=== PATIENT | male | born 1960 | race African-American/Black ===

== ENCOUNTER 2022-08-14 14:12 | Emergency (ER) | payer MEDICARE, SELFPAY ==
--- NOTE | 2022-08-14 14:19 | ED.MALEGU ---
HPI - Male Genitourinary General Chief complaint: Urogenital-Male Stated complaint: blood in urine; frequent urine Time Seen by Provider: 08/14/22 14:39 Source: patient and RN notes reviewed Mode of arrival: ambulatory Limitations: no limitations History of Present Illness HPI Narrative: 61-year-old male presents with concern for urine frequency, change in urine stream, blood in his urine. He reports history of urinary stricture and gets urinary tract infections about once a year. He denies fever, aches. Reports chills. Reports abdominal discomfort, denies abdominal pain, vomiting. Reports mild low back pain. He did not take any medications for his symptoms MD Complaint: other (Urinary urgency) Related Data Home Medications Medication Instructions Recorded Confirmed chlorthalidone 25 mg tablet 25 mg PO DAILY 08/14/22 08/14/22 clonidine HCl 0.2 mg tablet 0.2 mg PO BID 08/14/22 08/14/22 losartan 25 mg tablet 25 mg PO DAILY 08/14/22 08/14/22 Allergies Allergy/AdvReac Type Severity Reaction Status Date / Time sulfamethoxazole Allergy Severe Swelling Verified 08/14/22 14:44 [From Bactrim] trimethoprim [From Bactrim] Allergy Severe Swelling Verified 08/14/22 14:44 Review of Systems Review of Systems: CONSTITUTIONAL: Denies malaise, chills, sweats, or fever. CARDIOVASCULAR: Denies chest pain, palpitations, or edema. RESPIRATORY: Denies cough or dyspnea. GASTROINTESTINAL: Denies abdominal pain, nausea, vomiting, diarrhea GENITOURINARY: Reports urgency, frequency, hematuria. Denies dysuria, suprapubic pressure, flank pain SKIN: Denies rash or itching. MUSCULOSKELETAL: Denies back pain or myalgia. All systems reviewed & are unremarkable except as noted in HPI and below PMFSH Comments At time of signature, agree with nursing past medical, surgical, social and family history. There is no relevant family history pertinent to the presenting complaint Exam Narrative: GENERAL: Well-appearing, well-nourished, and in no acute distress. HEAD: Normocephalic. EYES: PERRLA, conjunctivae clear. NECK: Supple. No lymphadenopathy CHEST: Clear to auscultation. No respiratory distress. HEART: Regular rate and rhythm. ABDOMEN: Soft, nontender upon palpation, nondistended, normal active bowel sounds, no palpable or pulsatile masses, no guarding. No CVA tenderness SKIN: Warm, dry, no rash. NEURO: Alert and oriented x3. PSYCH: Normal mood and affect Course Course Emergency Course: Patient is aware of diagnosis, understands and agrees to treatment plan. Anticipatory guidance given. Patient agrees to follow-up as directed and is aware of reasons to seek care at the emergency department. Portions of this record may have been created with voice recognition software Level of Care: Express Care Visit Vital Signs Vital signs: Reviewed. MDM - Male Genitourinary MDM Narrative Medical decision making narrative: Exam findings show no acute concerns or changes; patient is non-toxic appearing and is in no distress. Patient is appropriate for outpatient treatment and follow-up. Critical Care Time Critical Care Time Critical Care Time: No Discharge Plan Discharge Clinical Impression: Urinary tract infection Qualifiers: Hematuria presence: with hematuria Patient Disposition: Home, Self-Care Condition: Stable Instructions: Antibiotic Form, Urinary Tract Infection in Men (ED) Additional Instructions: We will send a urine culture to the lab; if the culture identifies an organism that the prescribed antibiotic will not treat, you will receive a phone call from an urgent care staff member and an appropriate antibiotic will be prescribed. -Your symptoms should begin to improve within a day of starting antibiotics. But you should finish all the antibiotic pills you get. Otherwise your infection might come back. -Also recommend: increase water intake. Tylenol/ibuprofen as needed for pain or fever -Follow-up with you
[2022-08-14 14:33] VITALS: BP 155/96; PULSE 87; RESP 16; TEMP 37.7; O2SAT 99
== END 2022-08-14 14:54 | disposition home or self-care (01) ==
PROVIDERS: Emergency Provider Nurse Practitioner
DX: N39.0 Urinary tract infection, site not specified (principal); R31.9 Hematuria, unspecified; I10 Essential (primary) hypertension
CPT/HCPCS: 81003; 87077; 87086; 87186; 99213; G0463

== ENCOUNTER 2022-08-22 14:48 | Emergency (ER) | payer MEDICARE, SELFPAY ==
[2022-08-22 15:02] VITALS: BP 162/89; PULSE 73; RESP 12; TEMP 36.6; O2SAT 100
--- NOTE | 2022-08-22 15:18 | ED.MALEGU ---
HPI - Male Genitourinary General Chief complaint: Urogenital-Male Stated complaint: Blood in urine Time Seen by Provider: 08/22/22 15:05 Source: patient Mode of arrival: ambulatory Limitations: no limitations History of Present Illness HPI Narrative: Mr. Morrell is a 61-year-old male patient presenting to the clinic today with complaints of blood in his urine times 1-2 days. He reports he just finished up a prescription for some ciprofloxacin for a urinary tract infection. Was seen here and prescribed the Cipro. Urine culture came back as Citrobactor Kosar-ciprofloxacin was susceptible. Patient reports that he believes he only has taking the antibiotic for 4-5 days. He denies any fever, chills, flank pain, or abdominal pain. States that he is just having gross hematuria. 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 Feels as though he may not be fully emptying his bladder at times. No history of prostate enlargement. Related Data Home Medications Medication Instructions Recorded Confirmed chlorthalidone 25 mg tablet 25 mg PO DAILY 08/14/22 08/22/22 clonidine HCl 0.2 mg tablet 0.2 mg PO BID 08/14/22 08/22/22 losartan 25 mg tablet 25 mg PO DAILY 08/14/22 08/22/22 Allergies Allergy/AdvReac Type Severity Reaction Status Date / Time sulfamethoxazole Allergy Severe Swelling Verified 08/22/22 14:59 [From Bactrim] trimethoprim [From Bactrim] Allergy Severe Swelling Verified 08/22/22 14:59 Review of Systems Review of Systems: Pertinent positives per HPI. Patient denies any fever, chills, rash, headache, visual changes, dizziness, cough, runny nose, sore throat, shortness of breath, chest pain, palpitations, nausea, vomiting, diarrhea, constipation, abdominal pain, or any urinary issues. PMFSH Comments At the time of my signature, I reviewed and agree with the nursing past medical, surgical, social, and family history. There is no relevant family history pertinent to the patient complaint. Exam Narrative: General: Well-developed, well nourished, in no apparent distress. Head: Normocephalic, atraumatic. Cardio: Regular rate and rhythm, s1 and s2 normal, no murmur appreciated. Resp: Clear to auscultation bilaterally, no rhonchi, rales, wheezing or rubs. Abdomen: Soft, pliable, bowel sounds present in all quadrants, non-tender to palpation, no organomegly, no CVAT tenderness. Course Course Emergency Course: Portions of this record may have been created with voice recognition software. Level of Care: Express Care Visit Vital Signs Vital signs: Vital Signs Temperature 36.6 C 08/22/22 15:02 Pulse Rate 73 08/22/22 15:02 Respiratory Rate 12 08/22/22 15:02 Blood Pressure 162/89 H 08/22/22 15:02 Pulse Oximetry 100 08/22/22 15:02 Oxygen Delivery Room Air 08/22/22 15:02 Temperature 36.6 C 08/22/22 15:02 Pulse Rate 73 08/22/22 15:02 Respiratory Rate 12 08/22/22 15:02 Blood Pressure 162/89 H 08/22/22 15:02 Pulse Oximetry 100 08/22/22 15:02 Oxygen Delivery Room Air 08/22/22 15:02 Vital signs reviewed MDM - Male Genitourinary MDM Narrative Medical decision making narrative: At the time of visit patient is resting comfortably on the exam table. Urinalysis dip is skewed due to gross hematuria. Will send this for culture. I will place the patient on Augmentin and discuss taking this for 10 days since his last culture was positive. If his symptoms are persistent he is to go to the emergency room or his primary care provider to have further evaluation. Gross hematuria could likely be caused by urinary tract infection, bladder mass, or interstitial cystitis. Supportive measures were discussed with the patient he voiced understanding discharge instructions agrees to treatment plan Differential Diagnosis Differential diagnosis: Likely urinary tract infection and other (Acute cystitis, gross hematuria, bladder mass, kidney stone, pyelonephr
== END 2022-08-22 15:29 | disposition home or self-care (01) ==
PROVIDERS: Emergency Provider Nurse Practitioner Family
DX: N30.01 Acute cystitis with hematuria (principal); I10 Essential (primary) hypertension
CPT/HCPCS: 81003; 87086; 99213; G0463

== ENCOUNTER 2023-01-11 15:02 | Emergency (ER) | payer MEDICARE, SELFPAY ==
[2023-01-11 15:25] VITALS: BP 139/78; PULSE 63; RESP 16; TEMP 37.3; O2SAT 100
--- NOTE | 2023-01-11 15:25 | ED.URI ---
HPI - URI/Sore Throat General Chief Complaint: Upper Respiratory Infection Stated Complaint: UTI Time Seen by Provider: 01/11/23 15:05 Source: patient Mode of arrival: ambulatory Limitations: no limitations History of Present Illness HPI Narrative: Sathya is a 62-year-old male patient presenting to the clinic today with complaints of possible UTI. He reports he noticed blood in his urine 2 days ago. Has recently been taking cefuroxime for possible UTI. He reports he has taken approximately 3 doses of the medication. Called his PCP's office 5 days ago and they sent him in the prescription for the medication as his urine was cloudy at that time. History of urethral reconstruction due to stricture. No fever or chills. Denies any bladder pain but has some right low back pain Related Data Home Medications Medication Instructions Recorded Confirmed chlorthalidone 25 mg tablet 25 mg PO DAILY 08/14/22 01/11/23 clonidine HCl 0.2 mg tablet 0.2 mg PO BID 08/14/22 01/11/23 losartan 25 mg tablet 25 mg PO DAILY 08/14/22 01/11/23 cefuroxime axetil 500 mg tablet mg 01/11/23 Allergies Allergy/AdvReac Type Severity Reaction Status Date / Time sulfamethoxazole Allergy Severe Swelling Verified 01/11/23 15:06 [From Bactrim] trimethoprim [From Bactrim] Allergy Severe Swelling Verified 01/11/23 15:06 Review of Systems Review of Systems: Pertinent positives per HPI. Patient denies any fever, chills, rash, headache, visual changes, dizziness, cough, runny nose, sore throat, shortness of breath, chest pain, palpitations, nausea, vomiting, diarrhea, constipation, abdominal pain, or any urinary issues. PMFSH Comments At the time of my signature, I reviewed and agree with the nursing past medical, surgical, social, and family history. There is no relevant family history pertinent to the patient complaint. Exam Narrative: General: Well-developed, well nourished, in no apparent distress. Head: Normocephalic, atraumatic. Cardio: Regular rate and rhythm, s1 and s2 normal, no murmur appreciated. Resp: Clear to auscultation bilaterally, no rhonchi, rales, wheezing or rubs. Abdomen: Soft, pliable, bowel sounds present in all quadrants, non-tender to palpation, no organomegly, no CVAT tenderness. Course Course Emergency Course: Portions of this record may have been created with voice recognition software. Level of Care: Express Care Visit Vital Signs Vital signs: Vital signs reviewed MDM - URI/Sore Throat MDM Narrative Medical decision making narrative: At the time of visit patient is resting comfortably on the exam table. UA was obtained and is positive for leukocytes, protein, blood, and ketones. Will send for culture. I suspect patient has urinary tract infection with possible right pyelonephritis. He is nontoxic appearing. Rocephin 1 g IM given in the clinic today. Will place the patient on Augmentin. Return precautions were reviewed and he voiced understanding. Supportive measures were discussed with the patient he voiced understanding discharge instructions and agrees to treatment plan. Referral for urologist was given. Differential Diagnosis Differential diagnosis: Likely other (Acute cystitis, pyelonephritis, urinary tract infection) Discharge Plan Discharge Clinical Impression: Acute UTI Patient Disposition: Home, Self-Care Condition: Stable Instructions: Antibiotic Form, Urinary Tract Infection in Men (ED) Additional Instructions: Urinalysis is positive for 1+ leukocyte, 3+ protein, 3+ blood, trace of ketone, and positive bili. Will send urine for culture Rocephin 1 g IM given in the clinic today Take Augmentin as prescribed Increase fluids and stay well hydrated Wipe front to back. May use wet wipes. Avoid tub baths If sexually active- pee before and after intercourse. Wear cotton panties Avoid tight clothing up against the genitals Follow up with your PCP in 1 week if
[2023-01-11] MEDS: cefTRIAXone 1 GM, LIDOCAINE HCL 1% LOCAL INJ 2.1 ML IM (15:51)
== END 2023-01-11 16:20 | disposition home or self-care (01) ==
PROVIDERS: Emergency Provider Nurse Practitioner Family
DX: N39.0 Urinary tract infection, site not specified (principal); I10 Essential (primary) hypertension
CPT/HCPCS: 81003; 87086; 96372; 99213; G0463; J0696

== ENCOUNTER 2023-02-12 15:26 | Emergency (ER) | payer MEDICARE, SELFPAY ==
--- NOTE | ~2023-02-12 | US_ITS ---
US scrotum doppler INDICATION: Right testicular pain TECHNIQUE: Testicular sonogram utilizing grayscale and color Doppler FINDINGS: The testes are normal in size and appearance. No focal lesions are seen. The right testes measures for x2.3 x 3.2 cm centimeters, and the left testis measures 3.5 x 2.2 x 2.4 cm cm. There is normal vascular flow to both testes. There is increased vascularity of the right epididymis. There is a large complicated septated right h ydrocele. There are left epididymal cysts. There is no varicocele or hydrocele. IMPRESSION: 1. Hypervascular right epididymis, suspicious for epididymitis. 2: Large complicated septated right hydrocele. Reviewed, dictated and finalized at location A. [facility]
[2023-02-12 16:33] VITALS: BP 158/94; PULSE 67; RESP 18; TEMP 37; O2SAT 98
[2023-02-12 19:23] VITALS: BP 146/95; PULSE 80; RESP 16; O2SAT 100
[2023-02-12 19:32] LABS: Appearance Urine Turbid (Clear); Bacteria Urine 4+ /hpf; Bilirubin Urine Negative (Negative); Blood Urine 2+ (Negative); Color Urine Dark Yellow (Yellow); Glucose Urine UA Negative (Negative); Ketones Urine Trace mg/dL (Negative); Leukocyte Esterase Ur 3+ LEU/UL (Negative); Need Manual Microscopic Reviewed; Nitrate Urine Negative (Negative); Protein Urine 1+ mg/dL (Negative); Specific Grav Ur 1.026 (1.001-1.035); Squamous Epithelial Cell Urine Occasional /hpf (Few); WBC Urine >100 /hpf
[2023-02-12 19:34] LABS: Add Urine Microscopic? YES
[2023-02-12] MEDS: SODIUM CHLORIDE 0.9% IV 1,000 ML 999 ML IV CONT (20:00)
[2023-02-12 20:07] LABS: Basophils Percent Auto 0.2 % (0.2-1.2); Eosinophils Absolute Auto 0.1 K/mm3 (0-0.3); Eosinophils Percent Auto 0.7 % (0-4.4); Hematocrit 46.3 % (42.0-52.0); Hemoglobin 14.8 g/dL (14.0-18.0); Immature Granulocyte Absolute 0.03 K/mm3 (0.00-0.031); Immature Granulocyte Percent A 0.3 % (0-0.5); Lymphocytes Absolute Auto 1.23 K/mm3 (0.9-3.2); Lymphocytes Percent Auto 11.5 % (18.3-44.2); Mean Corpuscular Volume 90.8 fl (80-100); Mean Platelet Volume 9.6 fl (7.4-10.4); Monocytes Absolute Auto 0.8 K/mm3 (0.1-0.6); Monocytes Percent Auto 7.4 % (2.6-8.5); Neutrophils Absolute Auto 8.5 K/mm3 (1.3-6.7); Neutrophils Percent Auto 79.9 % (45.5-73.1); Platelet Count Result 237 k/mm3 (150-375); Red Cell Distribution Width 12.4 % (11.5-14.5); White Blood Count 10.7 K/mm3 (4.5-10.0)
--- NOTE | 2023-02-12 20:10 | ED.GENADULT ---
HPI - General Adult General Chief complaint: Urogenital-Male Stated complaint: frequent urination, r testicle swelling Time Seen by Provider: 02/12/23 19:27 History of Present Illness HPI narrative: Patient is a 2-year-old gentleman who presents emergency department with chief complaint of right testicle pain. 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 The patient reports he goes between [place] a [facility] and [place] the patient states that he is currently not sexually active the patient reports that he has had urinary infections due to the difficulty draining his bladder the patient reports that he started having pain in the right testicle and reports that his right testicle is swollen and tender. Patient denies crepitance denies purulent drainage denies diabetes Related Data Home Medications Medication Instructions Recorded Confirmed chlorthalidone 25 mg tablet 25 mg PO DAILY 08/14/22 01/11/23 clonidine HCl 0.2 mg tablet 0.2 mg PO BID 08/14/22 01/11/23 losartan 25 mg tablet 25 mg PO DAILY 08/14/22 01/11/23 cefuroxime axetil 500 mg tablet mg 01/11/23 Allergies Allergy/AdvReac Type Severity Reaction Status Date / Time sulfamethoxazole Allergy Severe Swelling Verified 02/12/23 19:25 [From Bactrim] trimethoprim [From Bactrim] Allergy Severe Swelling Verified 02/12/23 19:25 Review of Systems Review of Systems: A 10 system review of systems was completed on the patient and is negative except for what is stated in the HPI. Nursing and ancillary documentation was reviewed. Exam Narrative: GENERAL: Well-appearing, well-nourished, and in no acute distress. HEAD: Normocephalic, atraumatic. EYES: PERRLA and EOMI. ENT: Nares clear, no rhinorrhea or epistaxis. Mucous membranes moist. NECK: Supple. CHEST: Clear to auscultation. No respiratory distress. HEART: Regular rate and rhythm. No murmur heard. Normal peripheral pulses. ABDOMEN: Soft, nontender, nondistended, normal active bowel sounds. : Right testicle is tender and swollen no crepitance no subcutaneous emphysema no purulent drainage EXTREMITIES: Normal range of motion. No edema. SKIN: Warm, dry, no rash. NEURO: No focal deficits. Alert and oriented x3. PSYCH: Normal mood and affect. Course Vital Signs Vital signs: Vital Signs Temperature 37.0 C 02/12/23 16:33 Pulse Rate 67 02/12/23 16:33 Respiratory Rate 18 02/12/23 16:33 Blood Pressure 158/94 H 02/12/23 16:33 Pulse Oximetry 98 02/12/23 16:33 Oxygen Delivery Room Air 02/12/23 16:33 Temperature 37.0 C 02/12/23 16:33 Pulse Rate 80 02/12/23 19:23 Respiratory Rate 16 02/12/23 19:23 Blood Pressure 146/95 H 02/12/23 19:23 Pulse Oximetry 100 02/12/23 19:23 Oxygen Delivery Room Air 02/12/23 16:33 Medical Decision Making MDM Narrative Medical decision making narrative: Differential diagnosis includes epididymitis, epididymo-orchitis, scrotal abscess, Rosalinda's gangrene, Laboratory studies showed a normal CBC with white count 10.7 urinalysis showed greater than 100 white blood cells in the urine 4+ bacteria ultrasound of the scrotum so showed epididymitis The patient is low risk for STI and the patient will be started on Levaquin as he is allergic to Bactrim Vital Signs Vital Signs: Vital Signs Temperature 37.0 C 02/12/23 16:33 Pulse Rate 67 02/12/23 16:33 Respiratory Rate 18 02/12/23 16:33 Blood Pressure 158/94 H 02/12/23 16:33 Pulse Oximetry 98 02/12/23 16:33 Oxygen Delivery Room Air 02/12/23 16:33 Temperature 37.0 C 02/12/23 16:33 Pulse Rate 80 02/12/23 19:23 Respiratory Rate 16 02/12/23 19:23 Blood Pressure 146/95 H 02/12/23 19:23 Pulse Oximetry 100 02/12/23 19:23 Oxygen Delivery Room Air 02/12/23 16:33 Lab Data
[2023-02-12 20:26] LABS: Lactic Acid Reflex 1.9 mmol/L (0.7-2.0)
[2023-02-12 20:34] LABS: Alanine Aminotransferase 21 U/L (6-50); Albumin Level 4.3 g/dL (3.5-5.1); Alkaline Phosphatase 77 U/L (38-126); Anion Gap 7 mmol/L (8-16); Aspartate Amino Transferase 29 U/L (17-59); Bilirubin,Total 2.1 mg/dL (0.2-1.3); Blood Urea Nitrogen 13 mg/dL (9-20); Calcium 8.9 mg/dL (8.4-10.2); Carbon Dioxide 31 mmol/L (22-30); Chloride 98 mmol/L (98-107); Estimated CRCL calculation 88 ml/min; Estimated Glomerular Filt Rate > 60; Glucose 121 mg/dL (65-110); Potassium 3.2 mmol/L (3.4-5.0); Sodium 136 mmol/L (137-145)
[2023-02-12] MEDS: levoFLOXacin 500 MG TABLET PO (21:53)
== END 2023-02-12 22:35 | disposition home or self-care (01) ==
PROVIDERS: Student in an Organized Health Care Education/Training Program; Emergency Provider Emergency Medicine
DX: N39.0 Urinary tract infection, site not specified (principal); N45.1 Epididymitis; N35.919 Unspecified urethral stricture, male, unspecified site
CPT/HCPCS: 36415; 76870; 80053; 81001; 83605; 85025; 87077; 87086; 87186; 93976; 96360; 99284; A9270; J7030